=== PATIENT | male | born 1945 | race American Indian/Alaskan Native ===

== ENCOUNTER 2016-05-30 07:02 | Day surgery (SDC) | payer MEDICARE ==
[2015-07-06 18:07] VITALS: BMI 25.1
[2016-05-30] MEDS ORDERED: Tobramycin/Dexamethasone (Tobradex) Opth Sol (2.5 ml) ONE (07:29)
[2016-05-30] MEDS ORDERED: Carbachol 0.01% IO ONE (07:29)
[2016-05-30] MEDS ORDERED: Tetracaine 0.5% Ophth (OR ONLY) ONE (07:29)
[2016-05-30] MEDS ORDERED: Povidone Iodine Ophthalmic 5% Soln ONE (07:29)
[2016-05-30] MEDS ORDERED: Chondroitin/Hyaluronate Opth Syringe KIT (0.55 ml-0.5 ml) IO ONE (07:30)
[2016-05-30] MEDS ORDERED: Tobramycin/Dexamethasone OPHT OINT ONE ×2 (07:30→08:08)
[2016-05-30] MEDS ORDERED: Hyaluronidase Human, Recombi 150 U/ML VIAL ONE (07:30)
[2016-05-30] MEDS ORDERED: Lidocaine 2% Inj (20ml) ONE (07:30)
[2016-05-30] MEDS ORDERED: Lidocaine 2% w Epi 1:100,000 Inj IJ ONE ×2 (07:36→08:08)
[2016-05-30] MEDS ORDERED: Lidocaine 2% Jelly (Uro-Jet) ONE ×2 (07:36→08:09)
[2016-05-30] MEDS ORDERED: Lactated Ringer's 1,000 ML IV ONE (08:02)
[2016-05-30 08:21] LABS: INR 1.2
[2016-05-30 11:17] VITALS: O2SAT 100
[2016-05-30 14:43] VITALS: BP 120/87; PULSE 61; RESP 20; TEMP 97.7
--- NOTE | 2016-06-02 16:07 | OP ---
PROCEDURE DATE: 05/30/2016 PREOPERATIVE DIAGNOSES: 1. PTERYGIUM, LEFT EYE. 2. CORNEAL OPACIFICATION, LEFT EYE. POSTOPERATIVE DIAGNOSES: 1. PTERYGIUM, LEFT EYE. 2. CORNEAL OPACIFICATION, LEFT EYE. OPERATIVE PROCEDURE: EXCISION OF PTERYGIUM WITH CONJUNCTIVAL AUTOGRAFT AND LAMELLAR KERATECTOMY, LEF T EYE. ANESTHESIA TYPE: Local standby. ANESTHESIOLOGIST: COMPLICATIONS: None. PROCEDURE: The patient was brought to the operating room and was prepped and draped in the usual lora rile fashion. A lid speculum was placed into the eye and topical Tetracaine was used. One percent l idocaine with epinephrine was injected subconjunctivally into the body of the pterygium. A Sylvie scissor was used to create a small opening at the neck of the pterygium at the limbus, and then a tunnel was created beneath the pterygium. A #4-0 silk suture was placed through this tunnel and tied securely. An additional #4-0 silk suture was placed through the tunnel and in a sling fashi on, was used to excise the head of the pterygium from the corneal surface. A Sylvie scissor was then used to excise the scleral extension of the pterygium for approximately 3 -4 millimeters. Tenon's membrane was removed beneath the dissected bed and light cautery was used fo r hemostasis. A #57 [place] blade was then used to perform a lamellar keratectomy removing all of the opacified corneal tissue. A len rachel was used to armenian this surface. One percent lidocaine wa s used subconjunctivally in the superior aspect of the eye, and a conjunctival autograft was harveste d and rotated in an anatomical fashion over the recipient bed. The graft was noted to be of excellen t size for the bed, and #8-0 Vicryl sutures were used in an interrupted fashion to suture the graft i n place. At the limbus both above and below, the graft was tacked down to episclera. At the end of the case a collagen shield soaked in TobraDex was placed onto the cornea, and TobraDex ointment was placed into the eye. A patch and shield were placed over the eye, and the patient was t abdirahmanen from the operating room in excellent condition. Pablo Carrasco MD cc: [id number] TT: 06/02/2016 16:06:50 tn
== END 2016-05-30 11:41 | disposition home or self-care (01) ==
LOC: C.SDS 07:02
PROVIDERS: ATTEND Ophthalmology
DX: H11.002 Unspecified pterygium of left eye (principal); H17.9 Unspecified corneal scar and opacity; I10 Essential (primary) hypertension; I48.91 Unspecified atrial fibrillation; Z79.01 Long term (current) use of anticoagulants
CPT/HCPCS: 36415; 65426; 85610; 88304; J7120